=== PATIENT | male | born 1985 | race Caucasian/White ===

== ENCOUNTER 2016-05-18 11:00 | Emergency (ER) | payer SELFPAY ==
[2016-05-18 11:08] VITALS: BP 138/92
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
[2016-05-18] MEDS ORDERED: Ibuprofen TAB* 800 MG PO ONE (12:28)
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
== END 2016-05-18 14:11 | disposition home or self-care (01) ==
LOC: ED 11:00
DX: M54.2 Cervicalgia (principal); M54.9 Dorsalgia, unspecified
CPT/HCPCS: 71020; 72040; 93005; 99281; A9270-GY